=== PATIENT | female | born 1985 | race African-American/Black ===

== ENCOUNTER 2017-08-20 19:34 | Emergency (ER) | payer BC, MEDICAID ==
[~2017-08-20] VITALS: Ht 162.6 cm; Wt 87.0 kg
[2017-08-20 20:51] VITALS: BP 111/68
== END 2017-08-20 21:00 | disposition left against medical advice (07) ==
LOC: ER 19:34
DX: F41.9 Anxiety disorder, unspecified (principal); Z53.21 Procedure and treatment not carried out due to patient leaving prior to being seen by health care provider

== ENCOUNTER 2019-06-16 23:18 | Emergency (ER) | payer BC, MEDICAID ==
[~2019-06-16] VITALS: Ht 162.6 cm; Wt 96.2 kg
[2019-06-17 01:15] VITALS: BP 150/91
== END 2019-06-17 01:16 | disposition home or self-care (01) ==
LOC: ER 23:18
DX: F41.0 Panic disorder [episodic paroxysmal anxiety] (principal); F43.0 Acute stress reaction; M54.5 Low back pain; R03.0 Elevated blood-pressure reading, without diagnosis of hypertension
CPT/HCPCS: 99284